=== PATIENT | female | born 1995 | race Caucasian/White ===

== ENCOUNTER 2023-06-10 11:31 | Outpatient (CLI) | payer BC, SELFPAY ==
[2023-06-10 13:10] LABS: Hemoglobin A1C 5.1 % (<5.7)
[2023-06-12 06:34] LABS: Prolactin 10.9 ng/mL (***)
[2023-06-12 12:24] LABS: DHEA-Sulfate 133 mcg/dL (18-391)
[2023-06-13 14:11] LABS: Testosterone Free 2.9 pg/mL (0.1-6.4); Testosterone Total 17 ng/dL (2-45)
== END 2023-06-10 11:32 | disposition home or self-care (01) ==
LOC: ANHLAB 11:32
PROVIDERS: Visit Provider Obstetrics & Gynecology
DX: N92.6 Irregular menstruation, unspecified (principal)
CPT/HCPCS: 36415; 82627; 83036; 83498; 84146; 84402; 84403; 84443

== ENCOUNTER 2025-01-18 10:30 | Outpatient (RCR) | payer BC, SELFPAY ==
[2025-01-04 12:35] VITALS: BP 126/80; PULSE 85
[2025-01-11 12:28] VITALS: BP 126/74; PULSE 80
--- NOTE | ~2025-01-18 | US_ITS ---
EXAMINATION: US OB BPP wo non-stress DATE: 01/04/2025 13:45 INDICATION: Elevated BMI. Third trimester . TECHNIQUE: Real-time pelvic ultrasound was performed. The interpreting radiologist was not present fo r the study. COMPARISON: 08/12/2024 FINDINGS: There is a single living fetus in vertex presentation. The placenta is posterior fundal and not low- lying. heart rate is 165 beats per minute (bpm). Amniotic fluid volume is subjectively normal w ith normal deepest vertical pocket measurement of 5.2 cm. Biophysical profile performed by the technologist: breathing (30 sec sustained breathing in 30 minutes): 2 out of 2 movement (3 gross body movements in 30 minutes): 2 out of 2 tone (one episode of qizsxdp-epajvwfvw-xqmafum limb movement): 2 out of 2 Amniotic fluid pocket (2 cm): 2 out of 2 Total score: 8 out of 8 IMPRESSION: 1. Single living fetus in vertex presentation with heart rate of 165 bpm. 2. Biophysical profile 8 out of 8. Reviewed, dictated and finalized at location A.
--- NOTE | ~2025-01-18 | US_ITS ---
EXAMINATION: US OB BPP wo non-stress DATE: 01/11/2025 12:17 INDICATION: Assess amniotic fluid index and biophysical profile. Elevated BMI. Third trimester pregna ncy. TECHNIQUE: Real-time pelvic ultrasound was performed. The interpreting radiologist was not present fo r the study. COMPARISON: None. FINDINGS: There is a single living fetus in vertex presentation. The placenta is fundal and not low-lying. Fet al heart rate is 155 beats per minute (bpm). Normal amniotic fluid index of 13.9 cm. Biophysical profile performed by the technologist: breathing (30 sec sustained breathing in 30 minutes): 2 out of 2 movement (3 gross body movements in 30 minutes): 2 out of 2 tone (one episode of ksftbor-idjbdztzf-pcihfzs limb movement): 2 out of 2 Amniotic fluid pocket (2 cm): 2 out of 2 Total score: 8 out of 8 IMPRESSION: 1. Single living fetus in vertex presentation with heart rate of 155 bpm. 2. Biophysical profile 8 out of 8. 3. Normal amniotic fluid index of 13.9 cm. Reviewed, dictated and finalized at location A.
--- NOTE | ~2025-01-18 | US_ITS ---
LIMITED OBSTETRIC ULTRASOUND/BIOPHYSICAL PROFILE Ordering provider: Reyes Parra MD History: . BPP, Growth, elevated BMI . Comparison: None. FINDINGS: MATERNAL CERVIX: Not visualized. cm which is normal (normal is equal to or greater than 3.0 cm). PRESENTATION: Vertex. Longitudinal lie. PLACENTAL LOCATION: Fundal No previa. HEART RATE: 120 bpm (normal is between 110 to 160 bpm). AMNIOTIC FLUID INDEX: Largest vertical pocket is 4.4 cm. OTHER: Maternal ovaries not visualized. -- BIOMETRICS: BPD: 9 5.2 mm = 38 weeks and 6 days. HC: 338.3 mm = 38 weeks and 6 days. FL: 75.7 mm = 38 weeks and 5 days. AC: 349.4 mm = 38 weeks and 6 days. CI: 84.42 HC/AC: 0.97 FL/BPD: 79.51 FL/AC: 21.67 Estimated weight is 3604 g EFW/GP: 67.6% SCORE: breathing movements: 2 movements: 2 tone: 2 Amniotic fluid volume: 2 Total: 8 IMPRESSION: Normal biophysical profile. Ultrasound age is 38 weeks and 6 days. FREDI is January 26, 2025. Reviewed, dictated and finalized at location A.
== END 2025-01-25 08:30 | disposition home or self-care (01) ==
LOC: ANHOBOP 10:30
PROVIDERS: PCP Family Medicine; Visit Provider Obstetrics & Gynecology
DX: O26.893 Other specified pregnancy related conditions, third trimester (principal); R03.0 Elevated blood-pressure reading, without diagnosis of hypertension; Z3A.36 36 weeks gestation of pregnancy; O99.210 Obesity complicating pregnancy, unspecified trimester; Z3A.37 37 weeks gestation of pregnancy
CPT/HCPCS: 59025; 76816; 76819

== ENCOUNTER 2025-01-19 13:14 | Outpatient (CLI) | payer BC, SELFPAY ==
--- OUTSIDE RECORDS SUMMARY | 2025-01-19 13:18 | XMS_ITS | Clinical Summary ---
Author Organization [facility] Health Address [address] [place] [address] Care Team Providers Care Law Enforcement Director Name Role Phone Unavailable Primary Care Provider Unavailabl e Source Comments [facility],non-owned Affiliates and Associated Physician Practices is amultiple site organization consisting of ambulatory clinics and hospital sitesin [place], [place], [place] and [place]. This disclosure is being madepursuant to the Care Everywhere program and may not contain all information available regarding this patient. Last updated 18.[facility] Allergies No known active allergies Encounters Date Type Department Care Team Description 12/18/2024 7:30 AM CDT - 12/18/2024 11:59 PM CDT Hospital Encounter [facility] [address] [place] [id number] Austin Alvarez MD Discharge Disposition: Home or Self Care 11/16/2024 11:15 AM CDT - 11/16/2024 11:59 PM CDT Hospital Encounter [facility] [address] [place] [id number] Joselin Howell MD Discharge Disposition: Home or Self Care from Last 3 Months Social History Tobacco Use Types Packs/Day Years Used Date Smoking Tobacco: Never Assessed Estimated Date of Delivery Comme nts Yes 01/26/2025 Based on last me nstrual period of 04/21/2024 Sex and Gender Information Value Date Recorded Sex Assigned at Not on file Legal Sex Female 8:53 AM SHAPE CARVER Gender Identity Not on file Sexual Orientation Not on file Plan of Treatment Health Maintenance Due Date Last Done Comments PAP SMEAR 1994 HIV SCREENING 2009 HEPATITIS C SCREENING 06/14/2012 DTAP/TDAP/TD VACCINES (1 - Tdap) 2013 HEPATITIS B VACCINE (1 of 3 - 19+ 3-dose series) 2013 COVID-19 VACCINE ( season) 2024 04/13/2022, 07/05/2021, 10/22/2020, Additional history exists DEPRESSION SCREENING 09/02/2024 OB-ONE HOUR GLUCOSE 10/20/2024 OB-TDAP CURRENT 10/27/2024 OB-RHOGAM INJECTION 11/03/2024 OB-GROUP B STREP SCREEN 12/22/2024 ZOSTER VACCINE (1 of 2) 2044 INFLUENZA VACCINE Completed 06/10/2024, , 06/10/2015 HIB VACCINE Aged Out No longer eligi ble based on patient's age to complete this topic HPV VACCINE Aged Out No longer eligi ble based on patient's age to complete this topic MENINGOCOCCAL (Group B) VACCINE SHARED DECISION-MAKING Aged Out No longer eligible based on patient's age to complete this topic MENINGOCOCCAL GROUPS A/C/Y/W VACCINE Aged Out No longer eligible based on patient's age to complete this topic PNEUMOCOCCAL VACCINE Aged Out No long er eligible based on patient's age to complete this topic Respiratory Syncytial Virus (RSV) Vaccine Pt: or over 60 yrs (No Doses Required) Completed Procedures Procedure Name Priority Date/Time Associated Diagnosis Comments SONOGRAM - COMPLETE Routine 12/18/2024 7 :33 AM CDT Encounter for ultrasound to assess growth (HCC) 34 weeks gestation of (HCC) Obesity affecting in third trimester, unspecified obesity type (HCC) SONOGRAM - COMPLETE Routine 11/16/2024 1 1:13 AM CDT BMI 40.0-44.9, adult 30 weeks gestation of Encounter for ultrasound to assess growth from Last 3 Months Results * SONOGRAM - COMPLETE (12/18/2024 7:33 AM CDT) Only the most recent of2 resultswithin the time period is included. Linked Results Indication ======== Completed anatomy Obesity, Class III History ====== OB History 1 Maternal Assessment Physical Exam Height 163 cm, 5 ft 4 in. Weight 117 kg, 258 lb. Initial weight 117 kg, 259 lb. BMI 44.29 kg/m . Initial BMI 44.46 kg/m . Weight gain 0 kg, -1 lb Method ====== Transabdominal ultrasound. View: Sufficient ========= Henao . Number of fetuses: 1 Dating ====== Date Details Gest. age FREDI LMP 04/21/2024 34 w + 3 d 01/26/2025 Stated FERDI 34 w + 3 d 01/26/2025 U/S 12/18/2024 based upon AC, BPD, Femur, HC 34 w + 1 d 01/28/2025 Assigned dating based on the LMP, selected on 09/14/2024 34 w + 3 d 01/26/2025 General Evaluation Cardiac activity present. FHR 142 bpm. Presentation: breech Placenta: Placental site: right lateral Amniotic fluid: Amount of AF: normal. MVP 4.8 cm. JEREMY 16.2 cm. Q1 4.0 cm, Q2 3.9 cm, Q3 4.8 cm, Q4 3.4 cm Biometry BPD 82.7 mm 33w 2d 18% Hadlock HC 311.6 mm 34w 6d 25% Hadlock AC 300.5 mm 34w 0d 43% Hadlock Femur 66.2 mm 34w 1d 32% Hadlock Humerus 57.4 mm 33w 2d 34% Hailey HC / AC 1.04 Weight Calculation: EFW 2,337 g 34% Hadlock EFW (lb,oz) 5 lb 2 oz EFW by Hadlock ([id number]) appropriate Growth Overview = Exam date GA BPD (mm) HC (mm) AC (mm) FL (mm) HL (mm) EFW (g) 09/14/2024 20w 6d 45.4 10% 174.1 9% 158.8 48% 33.2 26% 33.3 62% 365 32% 10/16/2024 25w 3d 59.5 10% 221.8 3% 204.5 29% 45.2 22% 41.2 25% 746 20% 11/16/2024 29w 6d 71.6 10% 268.5 7% 249.1 24% 55.4 19% 50.1 38% 1342 17% 12/18/2024 34w 3d 82.7 18% 311.6 25% 300.5 43% 66.2 32% 57.4 34% 2337 34% Anatomy The following structures appear normal: Abdomen Stomach. Kidneys. Bladder. sex: female. Impression ========= Single, live, intrauterine at 34w 3d The size is appropriate. The amniotic fluid volume is normal. No major malformations were seen within the limits of ultrasound. Follow-up ======== Follow up ultrasound in 2 weeks to begin weekly testing due to maternal obesity Repeat growth in 4 weeks Coding ====== Procedures [id number]: US Preg Uterus Follow Up [employer] PACS Anatomical Region Laterality Modality Other 12/18/2024 7:33 AM CDT us Reyes Parra MD [facility] ORDERABLES Edited Result - Final from Last 3 Months Insurance [employer]
[2025-01-19 14:05] LABS: Hematocrit 34.6 % (37.0-47.0); Hemoglobin 11.6 g/dL (12.0-15.0); Mean Corpuscular HGB Conc 33.5 g/dl (32-36); Mean Corpuscular Hemoglobin 29.7 pg (26-34); Mean Corpuscular Volume 88.7 fl (80-100); Mean Platelet Volume 10.3 fl (7.4-10.4); Platelet Count Result 281 k/mm3 (150-375); Red Cell Distribution Width 13.6 % (11.5-14.5); White Blood Count 9.4 K/mm3 (4.5-10.0)
[2025-01-19 14:35] LABS: HIV 1/2 Ab P24 Ag Result Negative (Negative)
[2025-01-19 15:33] LABS: Syphilis IgG/IgM Antibody Negative (Negative)
== END 2025-01-19 13:15 | disposition home or self-care (01) ==
LOC: ANHLAB 13:16
PROVIDERS: PCP Family Medicine; Visit Provider Obstetrics & Gynecology
DX: Z34.93 Encounter for supervision of normal pregnancy, unspecified, third trimester (principal); Z3A.00 Weeks of gestation of pregnancy not specified
CPT/HCPCS: 36415; 85027; 86593; 86703; 86850; 86900; 86901; G0432

== ENCOUNTER 2025-01-20 10:51 | Inpatient (IN) | payer BC, SELFPAY ==
[2025-01-20] VITALS (58 sets, daily range): BP systolic 87–137; BP diastolic 47–81; PULSE 50–128; RESP 18–20; TEMP 36.1–37.2; O2SAT 51–100; BMI 44.6
--- OUTSIDE RECORDS SUMMARY | 2025-01-20 01:03 | XMS_ITS | Clinical Summary ---
Author Organization [facility] Health Address [address] [place] [address] Care Team Providers Care Cylinder Press Operator Name Role Phone Unavailable Primary Care Provider Unavailabl e Source Comments [facility],non-owned Affiliates and Associated Physician Practices is amultiple site organization consisting of ambulatory clinics and hospital sitesin [place], [place], [place] and [place]. This disclosure is being madepursuant to the Care Everywhere program and may not contain all information available regarding this patient. Last updated 18.[facility] Allergies No known active allergies Encounters Date Type Department Care Team Description 12/18/2024 7:30 AM CDT - 12/18/2024 11:59 PM CDT Hospital Encounter [facility] Maternal & Care [address] [place] [id number] Austin Alvarez MD Discharge Disposition: Home or Self Care 11/16/2024 11:15 AM CDT - 11/16/2024 11:59 PM CDT Hospital Encounter [facility] & Care [address] [place] [phone] Joselin Howell MD Discharge Disposition: Home or Self Care from Last 3 Months Social History Tobacco Use Types Packs/Day Years Used Date Smoking Tobacco: Never Assessed Estimated Date of Delivery Comme nts Yes 01/26/2025 Based on last me nstrual period of 04/21/2024 Sex and Gender Information Value Date Recorded Sex Assigned at Not on file Legal Sex Female 8:53 AM QUALITY ASSURANCE MONITOR FINAL Gender Identity Not on file Sexual Orientation [...] 34 w + 3 d 01/26/2025 Stated FREDI 34 w + 3 d 01/26/2025 U/S [...] 5 lb 2 oz EFW by Hadlock ([id number]) appropriate Growth Overview = Exam date GA [...] growth in 4 weeks Coding ====== Procedures [id number]: US Preg Uterus Follow Up [employer] PACS Anatomical Region Laterality Modality Other 12/18/2024 7:33 AM CDT us Reyes Parra MD [facility] ORDERABLES Edited Result - Final from Last 3 Months Insurance [facility]
--- NOTE | 2025-01-20 09:09 | P.HP_ITS ---
H&P: HPI History of Present Illness Date/Time: 01/20/25 09:09 29-year-old 1 patient at 39 weeks presents for primary delivery. Baby has been breech, converted to vertex at 37 weeks. Discussed vaginal delivery versus delivery and patient has opted for primary delivery. No other issues or complications with this . Recent estimated weight approximately 8 lb. Chief Complaint: Review of Systems Review of Systems: All systems reviewed & are unremarkable except as noted in HPI and below PMFSH Past Medical History Medical History Anxiety Depression Surgical History Surgical History History of wisdom tooth extraction H/O wisdom tooth extraction Family History Family History Mother Endometriosis Sibling Endometriosis Grandparent Diabetes mellitus Hypertension Family history of arthritis Family history of malignant neoplasm Mother Asthma Other Depression Social History Social History Smoking status: Never smoker Second hand tobacco smoke exposure: No Alcohol intake: former Drinks per week: 0 Alcohol use details: socially Substance use: never Substance use type: does not use Do You Feel Safe in your Home?: Yes Lack of Transportation: No Lack of Food: Never True Current Housing: I Have Housing Concerned About Future Housing: No Difficulty Paying Gas/Electric Bills: No Difficulty Paying for Meds: No Currently Unemployed: No Education: Master's Degree or Higher Difficulty w/ Childcare or Family Care: No Living arrangements: with family Additional living arrangements comments: with Occupation/Education: occupation Additional occupation/education comments: teacher Gender identity (if verbalized by the patient): Female Sexual Orientation (if Verbalized by the Patient): Straight or Heterosexual Spiritual care concerns: No Meds Home Medications and Allergies Home Medications ?Medication ?Instructions ?Recorded ?Confirmed ?Type vits no.10-ferrous 1 tablet PO DAILY 06/29/24 01/18/25 History fumarate 65 mg iron-folic acid 1 mg tablet aspirin 81 mg tablet,delayed 162 mg PO DAILY 08/27/24 01/18/25 History release polyethylene glycol 3350 17 17 g PO DAILY 08/27/24 01/18/25 History gram/dose oral powder (Miralax) sertraline 50 mg tablet 50 mg PO DAILY #90 tabs 09/21/24 01/18/25 Rx famotidine 10 mg tablet (Pepcid AC) 20 mg PO DAILY 01/04/25 01/18/25 History Allergies Allergy/AdvReac Type Severity Reaction Status Date / Time No Known Allergies Allergy Verified 01/13/25 09:14 Exam Const: General: cooperative, healthy appearing and comfortable Resp: Effort & Inspection: normal respiratory effort Auscultation: clear to auscultation bilaterally Cardio: Rate: regular rate Rhythm: regular rhythm GI: Inspection: normal to inspection Auscultation: normal bowel sounds : External Female Exam: normal external appearance Speculum Exam - Vagina: normal appearance of the vagina Bimanual exam- vagina & uterus: en larged ( fundal height 40cm heart tone 140) Assessment and Plan Assessment and plan (1) 39 weeks gestation of : Code(s): Z3A.39 - 39 weeks gestation of Status: Acute Assessment and Plan: proceed with primary delivery
[2025-01-20] MEDS: ACETAMINOPHEN 500 MG TABLET 1000 MG PO (11:14)
--- NOTE | 2025-01-20 11:36 | LDADM ---
This patient, Yazmin Garcia, was admitted to Labor/Delivery/Recovery 119 on 01/20/25 at 10:51. Plans for section, pain management and were discussed with patient. Patient/family oriented to hospital policies and general routines including ID bracelet, bed and alarms, visiting hours, pain management, procedures, bathroom and other care routines, personal items, smoking policy, room service/diet and guest tray routines, security routines, and visiting hours. Patient/Family are encouraged to report perceived risks to care and to ask questions if they do not understand what they are told or what they should do. See OBIX for further documentation.
[2025-01-20] MEDS: LACTATED RINGERS 1,000 ML 125 ML IV CONT ×2 (11:51→13:01)
[2025-01-20] MEDS: FAMOTIDINE 20 MG/2 ML VIAL IV PUSH (12:56)
[2025-01-20] MEDS: ONDANSETRON INJ 4 MG/2 ML VIAL IV PUSH (12:57)
--- NOTE | 2025-01-20 13:19 | P.PNAN_ITS ---
Anes - Initial Pre Proc Eval Procedure: Operation Date: 01/20/25 13:00 Proposed Procedures p Section - Reyes Parra MD Date/Time: 01/20/25 13:19 Surgeon: Reyes Parra MD Pre Op Diagnosis: c/s Patient Data Age: 29 Gender: F Height: 1.63 m Weight: 117.9 kg Last Vital Signs Temp 37.0 C 01/20/25 11:35 Pulse 95 01/20/25 11:18 BP 137/81 01/20/25 11:18 O2 Del Method Room Air 01/20/25 11:35 Allergies Allergy/AdvReac Type Severity Reaction Status Date / Time No Known Allergies Allergy Verified 01/13/25 09:14 Home Medications ?Medication ?Instructions ?Recorded ?Confirmed ?Type vits no.10-ferrous 1 tablet PO DAILY 06/29/24 01/18/25 History fumarate 65 mg iron-folic acid 1 mg tablet aspirin 81 mg tablet,delayed 162 mg PO DAILY 08/27/24 01/18/25 History release polyethylene glycol 3350 17 17 g PO DAILY 08/27/24 01/18/25 History gram/dose oral powder (Miralax) sertraline 50 mg tablet 50 mg PO DAILY #90 tabs 09/21/24 01/18/25 Rx famotidine 10 mg tablet (Pepcid AC) 20 mg PO DAILY 01/04/25 01/18/25 History Patient hx anesthesia problems: none Family hx anesthesia problems: none Results Review: All pre-operative results and documents have been reviewed as part of the pre- operative evaluation. [facility] Past Medical History Medical History Anxiety Depression Surgical History Surgical History History of wisdom tooth extraction H/O wisdom tooth extraction Family History Family History Mother Endometriosis Sibling Endometriosis Grandparent Diabetes mellitus Hypertension Family history of arthritis Family history of malignant neoplasm Mother Asthma Other Depression Social History Social History Smoking status: Never smoker Second hand tobacco smoke exposure: No Alcohol intake: former Drinks per week: 0 Alcohol use details: socially Substance use: never Substance use type: does not use Do You Feel Safe in your Home?: Yes Lack of Transportation: No Lack of Food: Never True Current Housing: I Have Housing Concerned About Future Housing: No Difficulty Paying Gas/Electric Bills: No Difficulty Paying for Meds: No Currently Unemployed: No Education: Master's Degree or Higher Difficulty w/ Childcare or Family Care: No Living arrangements: with family Additional living arrangements comments: with Occupation/Education: occupation Additional occupation/education comments: teacher Gender identity (if verbalized by the patient): Female Sexual Orientation (if Verbalized by the Patient): Straight or Heterosexual Spiritual care concerns: No Anes - Eval Final PreProcedure Day of Procedure 01/20/25 13:19 Patient weight: morbidly obese Heart: regular rate and rhythm Lungs: clear to auscultation Airway: Mallampati scale class II Neurological: alert and oriented Last oral intake: >/= 8 hours ASA classification: III Emergent: no Anesthetic plan: proceed Anesthesia type and monitoring: regional spinal and standard monitoring Results Review: All pre-operative results and documents have been reviewed as part of the pre- operative evaluation. Informed Consent: The patient's anesthetic plan and its attendant risks and benefits were discussed with the patient/family/POA. Questions were solicited and answers provided to the satisfaction of the patient/family/POA.
[2025-01-20] MEDS: ceFAZolin 2 GM/D5W 50 ML 2 GM/50 ML BAG IVPB (13:41)
--- NOTE | 2025-01-20 13:44 | WPDHPUPDATE1 ---
History and Physical Update Update Date/Time: 01/20/25 13:44 History and Physical has been reviewed, including an updated exam of the patient. There are NO changes in the patient's condition. Risks, benefits, and alternatives have been discussed and questions answered. Patient agrees to proceed with procedure.
[2025-01-20] MEDS: OXYTOCIN 30 UNITS/NS 500 ML 30 UNITS/500 ML BAG 125 UNITS IV CONT (15:11)
--- NOTE | 2025-01-20 17:40 | OBPPTRN ---
Patient transferred to post room #287 via stretcher. Support person present. Oriented to unit, room, information board, rooming in, admission packet and security measures. Patient verbalizes understanding.
[2025-01-20] MEDS: DOCUSATE SODIUM 100 MG CAPSULE PO (17:59)
[2025-01-20] MEDS: SIMETHICONE 80 MG TAB.CHEW PO (17:59)
[2025-01-20] MEDS: KETOROLAC 15 MG/ML VIAL (*BKC) IV PUSH (17:59)
[2025-01-20] MEDS: ACETAMINOPHEN 325 MG TABLET 650 MG PO (17:59)
[2025-01-20] MEDS: LORATADINE 10 MG TABLET PO (19:39)
[2025-01-20] MEDS: DEXTROSE 5%/0.45% SOD CHL 1,000 ML 125 ML IV CONT (19:50)
[2025-01-20] MEDS: diphenhydrAMINE HCl CAP 25 MG CAPSULE PO (23:12)
[2025-01-21] VITALS: BP 118/73; PULSE 60; RESP 18; TEMP 36.7; O2SAT 100
[2025-01-21] MEDS: ACETAMINOPHEN 325 MG TABLET 650 MG PO ×4 (00:14→19:05)
[2025-01-21] MEDS: KETOROLAC 15 MG/ML VIAL (*BKC) IV PUSH ×3 (00:14→12:31)
[2025-01-21] MEDS: KCL 20 MEQ/D5/0.45% SOD CHL 1,000 ML 125 ML IV CONT (03:15)
[2025-01-21 05:00] VITALS: BP 105/66; PULSE 65; RESP 18; TEMP 36.8; O2SAT 100
[2025-01-21 05:20] LABS: Basophils Percent Auto 0.3 % (0.2-1.2); Eosinophils Absolute Auto 0.1 K/mm3 (0-0.3); Eosinophils Percent Auto 0.9 % (0-4.4); Hematocrit 31.5 % (37.0-47.0); Hemoglobin 10.1 g/dL (12.0-15.0); Immature Granulocyte Absolute 0.06 K/mm3 (0.00-0.031); Immature Granulocyte Percent A 0.5 % (0-0.5); Lymphocytes Absolute Auto 2.47 K/mm3 (0.9-3.2); Lymphocytes Percent Auto 19.6 % (18.3-44.2); Mean Corpuscular HGB Conc 32.1 g/dl (32-36); Mean Corpuscular Hemoglobin 29.8 pg (26-34); Mean Corpuscular Volume 92.9 fl (80-100); Mean Platelet Volume 10.5 fl (7.4-10.4); Monocytes Absolute Auto 0.9 K/mm3 (0.1-0.6); Monocytes Percent Auto 6.8 % (2.6-8.5); Neutrophils Percent Auto 71.9 % (45.5-73.1); Platelet Count Result 225 k/mm3 (150-375); Red Blood Count 3.39 M/mm3 (4.2-5.4); Red Cell Distribution Width 13.4 % (11.5-14.5); White Blood Count 12.6 K/mm3 (4.5-10.0)
[2025-01-21 07:30] VITALS: BP 117/59; PULSE 74; RESP 16; TEMP 37.2; O2SAT 99
[2025-01-21 08:00] VITALS: PULSE 74; RESP 16; O2SAT 99
--- NOTE | 2025-01-21 08:45 | PC.NURSE ---
Met with patient to assess needs and any questions/concerns she may have. Baby is still in level 2 and should be coming up to the unit soon. Mom is pumping regularly and wants to put baby to breast when able. Baby has only bottle fed so far. Encouraged her to call out when baby is ready to go to breast so we can assist with latch and positioning. Patient agrees. Name on white board.
--- NOTE | 2025-01-21 09:12 | P.PCNOB_ITS ---
OB - Delivery Note Procedure Delivery date: 01/21/25 Pre-op diagnosis: Other (1. Thirty-nine week 2. Elective delivery ) Post-op Diagnosis: Same Procedure Performed: Primary Primary branch: low cervical, tr ansverse Surgeon: Reyes Parra MD Anesthesia type: Epidural Description of Procedure/Findings: Patient prepped and draped usual manner for this procedure. Pfannenstiel incision was made and carried down to the fascia which was extended bilaterally the length of the skin incision. Superiorly and inferiorly dissected away from the rectus muscles. Peritoneum was readily entered bladder flap developed without difficulty. Uterus was scored and dissected bilaterally length of the lower segment. Membranes ruptured with clear fluid noted. Vertex was delivered without difficulty. Cord clamped and cut and baby was passed off the operative field. Manual removal of the placenta without difficulty, membranes and clots were also removed. Uterus was exteriorized and there was no bleeding of significance from the uterus and the uterine incision was then closed using 0 Monocryl in a running interlocking manner with good approximation hemostasis noted. Tubes and ovaries bilaterally appeared normal. Uterus was turned to the abdomen gutters were clear serosanguineous fluid and clots and all subfascial was noted to be hemostatic. Fascia was then approximated 0 Vicryl from the left angle to the midline and then from the right angle to the midline with good approximation noted. Subcutaneous tissue was approximated using 0 plain suture in running manner. Skin connie were then used to approximate the skin edges without difficulty. At this point the procedure was considered terminated with immediate postoperative condition of mother and baby both excellent. Specimen: Yes (Placenta) Estimated Blood Loss: 780 Drains: Yes (Rodriguez catheter) Packing: No Pathology: Yes Complications: No immediate complications Condition: Stable Disposition: PACU Baby Gestational Age by Date: 39 Infant gender: Female presentation: vertex Placenta delivery description: Manual Removal Cord Vessel Description: 3 Vessels
--- NOTE | 2025-01-21 09:15 | P.PNOB_ITS ---
OB - PN: Subj Subjective Date/time seen: 01/21/25 09:15 S: Diet tolerated pain well controlled. Catheters done placed with clear urine. O: VSS afebrile Abdomen: Positive bowel sounds soft slightly distended bandage is dry. Labs: Noted A: Doing well postoperative day 1 primary section P: Routine postoperative/ care. OB - PN: Obj Data Labs 01/21/25 05:05 Labs: Laboratory Results - last 24 hr 01/21/25 05:05 WBC 12.6 H RBC 3.39 L Hgb 10.1 L Hct 31.5 L MCV 92.9 MCH 29.8 MCHC 32.1 RDW 13.4 Plt Count 225 MPV 10.5 H Immature Gran % (Auto) 0.5 Neut % (Auto) 71.9 Lymph % (Auto) 19.6 Evangeline % (Auto) 6.8 Eos % (Auto) 0.9 Baso % (Auto) 0.3 Lymph # (Auto) 2.47 Evangeline # (Auto) 0.9 H Eos # (Auto) 0.1 Baso # (Auto) 0.0 Abs Immat Gran (auto) 0.06 H Absolute Neuts (auto) 9.0 H Absolute Nucleated RBC 0.000 Nucleated RBC % 0.0 OB - PN A/P Time Spent With Patient Time: Total time spent is greater than 50% in coordination of care (as documented) at patient's floor/unit and/or counseling patient:
[2025-01-21] MEDS: FAMOTIDINE 20 MG TABLET PO (10:02)
[2025-01-21] MEDS: DOCUSATE SODIUM 100 MG CAPSULE PO ×2 (10:03→19:05)
[2025-01-21] MEDS: MULTIVIT/MIN/PREN/FOL AC/IRON TABLET 1 TAB PO (10:03)
[2025-01-21] MEDS: SIMETHICONE 80 MG TAB.CHEW PO ×3 (10:03→19:04)
[2025-01-21] MEDS: SERTRALINE HCL 50 MG TABLET PO (10:03)
[2025-01-21] MEDS: LORATADINE 10 MG TABLET PO (10:18)
--- NOTE | 2025-01-21 10:24 | WPDANLDPN2 ---
Anes-Prog Note L&D Date/Time: 01/21/25 10:24 Comfortable throughout: section Neuraxial method: epidural Epidural/Spinal procedure site: clean & non-tender Neuro status: Neuro function grossly intact. Cardiovascular status: normal Respiratory status: normal Airway patency: baseline Mental status: baseline Post-Op hydration status: normal Vital Signs: Last Vital Signs Temp 37.2 C 01/21/25 07:30 Pulse 74 01/21/25 07:30 Resp 16 01/21/25 07:30 BP 117/59 L 01/21/25 07:30 Pulse Ox 99 01/21/25 07:30 O2 Del Method Room Air 01/20/25 17:40 Pain score (VAS): 1 I/O: Intake & Output 01/20/25 01/21/25 01/21/25 23:59 07:59 15:59 Intake Total 450 1550 Output Total 400 850 Balance 50 700 Post-procedural complaints: none Patient feedback: Patient satisfied with anesthetic care.
--- NOTE | 2025-01-21 10:24 | WPDANLDNPN2 ---
Anes-Prog Note L&D-Neuraxial Date/Time: 01/21/25 10:24 Neuraxial medications: epidural PF morphine Opiod-related complaints: pruritis Patient feedback: Patient satisfied with post-operative pain management.
--- NOTE | 2025-01-21 12:05 | PC.NURSE ---
Patient was going to attempt baby at 1145 while I was in an outpatient appointment. The primary RN advised her to wait another 15 minutes until I could provide assistance. Mom decided to allow dad to bottle feed because she wanted to shower. Encouraged parents to call out at the next feeding time if they want to breast feed and desire help. RN updated.
[2025-01-21 13:05] VITALS: BP 112/54; PULSE 68; RESP 18; TEMP 36.8; O2SAT 98
--- NOTE | 2025-01-21 15:45 | PC.NURSE ---
Mother was going to feed baby a bottle and the RN suggested she try since baby looked so eager. Mom agreed and requested assistance. Observed mother latching infant to the [left] breast in [cross cradle / football / cradle] positions. Football worked best for mom and baby. [was] able to maintain an appropriate latch sometimes. She would push the nipple out with her tongue at initial latch on. Mother [declines] nipple pain/discomfort [throughout feeding]. Encouraged mother to keep awake and nursing at the breast for as long as baby desires. Supported mom to continue working with baby to practice a deep latch. Mom wants to continue topping up with formula after . She will pump if desired or any feeding when baby doesn't nurse at breast. Mother voiced understanding of the education shared, to call for assistance if the infant does not latch or if there is discomfort with . name on communication board. Reported to the Primary RN.?
[2025-01-21] MEDS: IBUPROFEN 600 MG TABLET PO (19:05)
[2025-01-21 20:00] VITALS: BP 112/66; PULSE 64; RESP 20; TEMP 36.7; O2SAT 98
[2025-01-22] MEDS: IBUPROFEN 600 MG TABLET PO ×4 (01:00→19:31)
[2025-01-22] MEDS: ACETAMINOPHEN 325 MG TABLET 650 MG PO ×4 (01:00→19:31)
[2025-01-22] MEDS: MULTIVIT/MIN/PREN/FOL AC/IRON TABLET 1 TAB PO (07:05)
[2025-01-22] MEDS: FAMOTIDINE 20 MG TABLET PO (07:05)
[2025-01-22] MEDS: DOCUSATE SODIUM 100 MG CAPSULE PO ×2 (07:05→16:25)
[2025-01-22] MEDS: SIMETHICONE 80 MG TAB.CHEW PO ×3 (07:06→16:25)
[2025-01-22 08:00] VITALS: PULSE 62; RESP 18; O2SAT 99
[2025-01-22 08:15] VITALS: BP 114/70; PULSE 62; RESP 18; TEMP 36.4; O2SAT 99
--- NOTE | 2025-01-22 12:15 | PM.OBDSVD ---
DS: Admitting Diagnosis Discharge Date 01.23.2025 Admitting Diagnosis DS: Discharge Diagnosis Discharge Diagnosis (1) , delivered: Code(s): O80 - Encounter for full-term uncomplicated delivery Status: Acute OB - DS: Summary OB Procedures : None OB Procedures Intrapartum: low cervical, transverse OB Procedures: : None Peripartum Data Procedures: Procedures Operation Date: 01/20/25 13:00 Actual Procedure Side Surgeon p Section Reyes Parra MD Time Spent with Patient Time attestation: Total time spent providing and/or coordinating discharge services: DS: Data Data Completed and Pending Pending studies at discharge: Pending at discharge 01/21/25 09:09 Surgical [PTH] Routine Discharge Plan Discharge Discharging Clinician: Reyes Parra Patient Disposition: Home Activity: no straining, no driving, follow weight bearing status and pelvic rest Diet: as tolerated Wound Care Instructions: keep dressing dry Discharge Instructions: office next week for staple removal/needs steristrips and staple removal kit on d/c Patient Instructions: Antibiotic Form Patient Language: Malaysian Stand Alone Forms: General Discharge Information Follow-up/Referrals: Reyes Parra MD [Physician] - 4 Weeks Discharge Medications: New hydrocodone-acetaminophen 5-325 mg Tablet 1 tablet PO Q3H PRN (Reason: Breakthrough Pain Rated 4-6) Qty: 20 0RF ibuprofen 600 mg Tablet 600 mg PO Q6H Qty: 30 0RF Continued sertraline 50 mg tablet 50 mg PO DAILY Qty: 90 1RF vit 10-iron fum-folic 65-1 mg tablet 1 tablet PO DAILY famotidine [Pepcid AC] 10 mg tablet 20 mg PO DAILY polyethylene glycol 3350 [Miralax] 17 gram/dose powder 17 g PO DAILY Discontinued aspirin 81 mg tablet,delayed release (DR/EC) 162 mg PO DAILY Date of admission: 01/20/25 10:51 Primary Care Provider: Antwon Maravilla Admitting Provider: Reyes Parra Attending physician on admission: Reyes Parra Condition: Stable
[2025-01-22] MEDS: SERTRALINE HCL 50 MG TABLET PO (13:00)
[2025-01-22 20:20] VITALS: BP 129/71; PULSE 66; RESP 16; TEMP 36.9; O2SAT 100
[2025-01-23] MEDS: ACETAMINOPHEN 325 MG TABLET 650 MG PO ×2 (01:50→07:58)
[2025-01-23] MEDS: IBUPROFEN 600 MG TABLET PO ×2 (01:50→07:58)
--- NOTE | 2025-01-23 06:05 | PC.NURSE ---
Report given to Ewelina Bauer RN.
--- NOTE | 2025-01-23 07:56 | PC.NURSE ---
Patient viewed the discharge video Mother & Baby Care, The First Two Weeks . Patient was given the opportunity and encouraged to ask questions. Patient verbalized understanding of information shared and has been given the mother/baby guide for home reference.
[2025-01-23] MEDS: DOCUSATE SODIUM 100 MG CAPSULE PO (07:58)
[2025-01-23] MEDS: SERTRALINE HCL 50 MG TABLET PO (07:58)
[2025-01-23] MEDS: SIMETHICONE 80 MG TAB.CHEW PO (07:59)
[2025-01-23] MEDS: MULTIVIT/MIN/PREN/FOL AC/IRON TABLET 1 TAB PO (07:59)
[2025-01-23] MEDS: LANOLIN (LANSINOH) 7.5 GM CREAM 1 APPLIC TOPICAL (07:59)
[2025-01-23] MEDS: FAMOTIDINE 20 MG TABLET PO (07:59)
[2025-01-23 08:03] VITALS: BP 129/80; PULSE 66; RESP 18; TEMP 36.8; O2SAT 100
[2025-01-25 11:21] VITALS: BP 135/74; PULSE 68; RESP 18; TEMP 36.9; O2SAT 100
== END 2025-01-23 12:10 | disposition home or self-care (01) | DRG 788 ==
LOC: ANHLDR 10:54 → ANHOB2 17:43
PROVIDERS: Admitting Provider Obstetrics & Gynecology; PCP Family Medicine; Visit Provider Obstetrics & Gynecology
PROC: 10D00Z1 Extraction of Products of Conception, Low, Open Approach (ICD-10-PCS; CPT 59514; principal; 2025-01-20 13:00)
DX: O32.1XX0 Maternal care for breech presentation, not applicable or unspecified (principal); O99.344 Other mental disorders complicating childbirth; F41.8 Other specified anxiety disorders; Z3A.39 39 weeks gestation of pregnancy; Z37.0 Single live birth
CPT/HCPCS: 36415; 85025; 88307; A9270; J0461; J0690; J1596; J1885; J2274; J2371; J2405; J2590; J3480; J7120